=== PATIENT | male | born 1985 | race Caucasian/White ===

== ENCOUNTER 2017-11-21 12:28 | Emergency (ER) | payer OTHER ==
[~2017-11-21] VITALS: Ht 175.3 cm; Wt 77.1 kg
[2017-11-21 13:45] VITALS: BP 106/66
--- NOTE | 2017-11-21 15:13 | EKG ---
[place] [address] ELECTROCARDIOGRAM REPORT Name: DAMIONCINTHIA LOONEY Room: [facility]#: [id number] Admission: 11/21/17 Attend Phys: Discharge: 11/21/17 Date of : 89 Report #: [id number] THIS REPORT FOR: //name// [facility] ED Test Date: 2017-11-21 Test Time: 12:36:17 Pat Name: CINTHIA BRUNO Department: Room: Gender: M Cripple Cutter: MARY Sood : 1985 Requested By: La Zaldviar Order Number: [id number] MD: Yohannes Gunter Measurements Intervals [place] Rate: 71 P: 11 DE: 123 QRS: 55 QRSD: 109 T: 45 QT: 391 QTc: 425 Interpretive Statements Sinus rhythm No previous ECG available for comparison Electronically Signed On 11-21-2017 15:13:25 CDT by Yohannes Gunter [email or web address] <ELECTRONICALLY SIGNED> By: Yohannes Gunter MD, [facility] 11/21/17 1513 1236 1236 Yohannes Gunter MD, FACC /EPI
== END 2017-11-21 13:46 | disposition home or self-care (01) ==
LOC: M.ERS 12:28
DX: M94.0 Chondrocostal junction syndrome [Tietze] (principal)